=== PATIENT | female | born 1990 ===

== ENCOUNTER 2022-04-13 06:00 | Outpatient (RCR) | payer OTHER, SELFPAY | END 2022-04-25 23:59 | disposition home or self-care (01) | LOC: SPT 06:00 | PROVIDERS: Referring Provider Physician Assistant; Visit Provider Physician Assistant | DX: G89.29 Other chronic pain (principal); M54.9 Dorsalgia, unspecified | CPT/HCPCS: 97110; 97161; 97530 ==

== ENCOUNTER 2022-04-26 06:00 | Outpatient (RCR) | payer OTHER, SELFPAY | END 2022-05-26 23:59 | disposition home or self-care (01) | LOC: SPT 06:00 | PROVIDERS: Visit Provider Physician Assistant | DX: M54.9 Dorsalgia, unspecified (principal); G89.29 Other chronic pain | CPT/HCPCS: 97110; 97530 ==

== ENCOUNTER 2022-05-27 06:00 | Outpatient (RCR) | payer OTHER, SELFPAY | END 2022-06-25 23:59 | disposition home or self-care (01) | LOC: SPT 06:00 | PROVIDERS: Visit Provider Physician Assistant | DX: M54.9 Dorsalgia, unspecified (principal); G89.29 Other chronic pain | CPT/HCPCS: 97110; 97530 ==

== ENCOUNTER 2022-06-26 06:00 | Outpatient (RCR) | payer OTHER, SELFPAY | END 2022-07-26 23:59 | disposition home or self-care (01) | LOC: SPT 06:00 | PROVIDERS: Visit Provider Physician Assistant | DX: M54.9 Dorsalgia, unspecified (principal) | CPT/HCPCS: 97110; 97530; G0283 ==

== ENCOUNTER 2022-07-27 06:00 | Outpatient (RCR) | payer OTHER, SELFPAY | END 2022-08-25 23:59 | disposition home or self-care (01) | LOC: SPT 06:00 | PROVIDERS: Visit Provider Physician Assistant | DX: M54.9 Dorsalgia, unspecified (principal); G89.29 Other chronic pain | CPT/HCPCS: 97110 ==

== ENCOUNTER 2022-10-21 06:00 | Outpatient (RCR) | payer OTHER, SELFPAY | END 2022-10-26 23:59 | disposition home or self-care (01) | LOC: MPT 06:00 | PROVIDERS: Visit Provider Physician Assistant | DX: M54.50 Low back pain, unspecified (principal) | CPT/HCPCS: 97161 ==

== ENCOUNTER 2022-10-27 06:00 | Outpatient (RCR) | payer OTHER, MEDICAID, SELFPAY | END 2022-11-23 23:59 | disposition home or self-care (01) | LOC: MPT 06:00 | PROVIDERS: Visit Provider Physician Assistant | DX: M54.50 Low back pain, unspecified (principal) | CPT/HCPCS: 97110; G0283 ==

== ENCOUNTER 2022-11-24 06:00 | Outpatient (RCR) | payer OTHER, MEDICAID, SELFPAY | END 2022-12-24 23:59 | disposition home or self-care (01) | LOC: MPT 06:00 | PROVIDERS: Visit Provider Physician Assistant | DX: M54.9 Dorsalgia, unspecified (principal) | CPT/HCPCS: 97110; G0283 ==

== ENCOUNTER 2022-12-25 06:00 | Outpatient (RCR) | payer OTHER, MEDICAID, SELFPAY | END 2023-01-06 23:59 | disposition home or self-care (01) | LOC: MPT 06:00 | PROVIDERS: Visit Provider Physician Assistant | DX: M54.59 Other low back pain (principal) | CPT/HCPCS: 97110; G0283 ==